=== PATIENT | male | born 1990 | race Caucasian/White ===

== ENCOUNTER 2017-08-17 15:41 | Emergency (ER) | payer MEDICAID ==
[2017-08-17] MEDS ORDERED: SODIUM CHLORIDE 0.9% FLUSH 10 ML FLUSH IVF PRN (16:45)
[2017-08-17] MEDS ORDERED: ASPIRIN 81 MG CHEW TAB PO ONE (16:45)
--- NOTE | 2017-08-17 16:45 | PD ---
HPI Chief Complaint: Chest Pain Time Seen by Provider: 16:34 Travel History International Travel<30 days: No Contact w/Intl Traveler<30days: No Traveled to known affect area: No History of Present Illness HPI Patient presents with an acute episode of chest pain. States it lasted approximately 10 minutes with radiation to both arms diaphoresis and shortness of breath. He is a smoker. Nondiabetic. Positive family history for cardiac disease. States he has been having these episodes for the past 13 years presumptive diagnosis of [id number]. States he is supposed to be wearing a Holter monitor however the battery has . Followed by cardiology in [place]. Driving to his home city of [facility] with poor diet and decreased ambulation. PFSH Past Medical History Diminished Hearing: No Musculoskeletal: Yes (DYSTONIA) Tetanus Vaccination: Unknown Influenza Vaccination: Yes ?: Not Past Surgical History Oral Surgery: Yes (WISDOM TEETH ) Social History Alcohol Use: No Tobacco Use: Yes (1PPD) Substance Use: Yes (MARIJUANA) Allergies-Medications (Allergen,Severity, Reaction): Coded Allergies: corn (Verified Allergy, Unknown, WEKENED IMMUNE SYSTEM, 08/17/17) dextrose (Verified Allergy, Unknown, WEAKENED IMMUNE SYSTEM, 08/17/17) milk (Verified Allergy, Unknown, WEAKENED IMMUNE SYSTEM, 08/17/17) Review of Systems General / Constitutional: No: Fever Eyes: No: Visual changes HENT: No: Headaches Cardiovascular: Positive: Chest Pain or Discomfort Respiratory: No: Shortness of Breath Gastrointestinal: No: Abdominal Pain Genitourinary: No: Dysuria Musculoskeletal: No: Pain Skin: No Rash Neurologic: No: Weakness Psychiatric: No: Depression Endocrine: No: Polydipsia Hematologic/Lymphatic: No: Easy Bruising Physical Exam Narrative GENERAL: Well-nourished, well-developed patient. SKIN: Focused skin assessment warm/dry. HEAD: Normocephalic. EYES: No scleral icterus. No injection or drainage. NECK: Supple, trachea midline. No JVD or lymphadenopathy. CARDIOVASCULAR: Regular rate and rhythm without murmurs, gallops, or rubs. RESPIRATORY: Breath sounds equal bilaterally. No accessory muscle use. GASTROINTESTINAL: Abdomen soft, non-tender, nondistended. MUSCULOSKELETAL: No cyanosis, or edema. BACK: Nontender without obvious deformity. No CVA tenderness. Data Data Last Documented VS Vital Signs Date Time Temp Pulse Resp B/P (MAP) Pulse Ox O2 Delivery O2 Flow Rate FiO2 08/17/17 16:57 74 08/17/17 16:57 99 Room Air 08/17/17 16:57 18 122/67 (85) Orders Orders Electrocardiogram (08/17/17 16:34) Basic Metabolic Panel (Bmp) (08/17/17 16:34) Ckmb (Isoenzyme) Profile (08/17/17 16:34) Complete Blood Count With Diff (08/17/17 16:34) Magnesium (Mg) (08/17/17 16:34) Prothrombin Time / Inr (Pt) (08/17/17 16:34) Act Partial Throm Time (Ptt) (08/17/17 16:34) Troponin I (08/17/17 16:34) Ecg Monitoring (08/17/17 16:34) Bilateral Bp Monitoring (08/17/17 16:34) Iv Access Insert/Monitor (08/17/17 16:34) Oximetry (08/17/17 16:34) Oxygen Administration (08/17/17 16:34) Aspirin Chew (Aspirin Chew) (08/17/17 16:45) Sodium Chloride 0.9% Flush (Ns Flush) (08/17/17 16:45) Chest, Pa & Lat (08/17/17 16:34) CKMB (08/17/17 16:45) CKMB% (08/17/17 16:45) Labs Laboratory Tests Test 08/17/17 16:45 White Blood Count 8.9 TH/MM3 Red Blood Count 5.04 MIL/MM3 Hemoglobin 15.4 GM/DL Hematocrit 44.3 % Mean Corpuscular Volume 87.8 FL Mean Corpuscular Hemoglobin 30.5 PG Mean Corpuscular Hemoglobin Concent 34.7 % Red Cell Distribution Width 12.3 % Platelet Count 239 TH/MM3 Mean Platelet Volume 8.4 FL Neutrophils (%) (Auto) 64.8 % Lymphocytes (%) (Auto) 27.7 % Monocytes (%) (Auto) 6.2 % Eosinophils (%) (Auto) 0.6 % Basophils (%) (Auto) 0.7 % Neutrophils # (Auto) 5.6 TH/MM3 Lymphocytes # (Auto) 2.5 TH/MM3 Monocytes # (Auto) 0.6 TH/MM3 Eosinophils # (Auto) 0.1 TH/MM3 Basophils # (Auto) 0.1 TH/MM3 CBC Comment DIFF FINAL Differential Comment Prothrombin Time 10.5 SEC Prothromb Time International Ratio 1.0 RATIO Activated Partial Thromboplast Time 27.4 SEC Blood Urea Nitrogen 13 MG/DL Creatinine 1.00 MG/DL Random Glucose 85 MG/DL Calcium Level 8.7 MG/DL Magnesium Level 2.2 MG/DL Sodium Level 139 MEQ/L Potassium Level 3.8 MEQ/L Chloride Level 106 MEQ/L Carbon Dioxide Level 25.4 MEQ/L Anion Gap 8 MEQ/L Estimat Glomerular Filtration Rate 92 ML/MIN Total Creatine Kinase 133 U/L Creatine Kinase MB 0.8 NG/ML Troponin I LESS THAN 0.02 NG/ML MDM Medical Decision Making Medical Screen Exam Complete: Yes Emergency Medical Condition: Yes Differential Diagnosis Acute coronary syndrome, reflux, [id number] Narrative Course Assessment plan discussed the patient at bedside. EKG reveals sinus rhythm rate of 82 questionable [id number]. Chest xray shows no acute cardiopulmonary process. 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 Rest, encouraged heart healthy diet Med/Other Pt SpecificInfo: No Meds Exist/No RX given Disposition: 01 DISCHARGE HOME Condition: Good Frederick Cunha MD Aug 17, 2017 16:45
[2017-08-17 16:57] VITALS: BP 122/67; PULSE 74; RESP 18; O2SAT 98
[2017-08-17 17:05] LABS: AUTOMATED NEUTROPHIL # 5.6 TH/MM3 (1.8-7.7); BASOPHIL # 0.1 TH/MM3 (0-0.2); BASOPHIL % 0.7 % (0.0-2.0); EOSINOPHIL # 0.1 TH/MM3 (0-0.4); EOSINOPHIL % 0.6 % (0.0-4.0); HEMATOCRIT 44.3 % (39.0-51.0); HEMOGLOBIN 15.4 GM/DL (13.0-17.0); LYMPH % 27.7 % (9.0-44.0); LYMPHOCYTE # 2.5 TH/MM3 (1.0-4.8); MEAN CELL VOLUME 87.8 FL (80.0-100.0); MEAN CORPUSCULAR HEMOGLOBIN 30.5 PG (27.0-34.0); MEAN CORPUSCULAR HGB CONC 34.7 % (32.0-36.0); MEAN PLATELET VOLUME 8.4 FL (7.0-11.0); MONO % 6.2 % (0.0-8.0); MONOCYTE # 0.6 TH/MM3 (0-0.9); NEUT % 64.8 % (16.0-70.0); PLATELET COUNT 239 TH/MM3 (150-450); RED BLOOD COUNT 5.04 MIL/MM3 (4.50-5.90); RED CELL DISTRIBUTION WIDTH 12.3 % (11.6-17.2); WHITE BLOOD COUNT 8.9 TH/MM3 (4.0-11.0)
[2017-08-17 17:12] LABS: CHLORIDE 106 MEQ/L (98-107); SODIUM (NA) 139 MEQ/L (136-145)
[2017-08-17 17:15] LABS: BICARBONATE 25.4 MEQ/L (21.0-32.0); CALCIUM 8.7 MG/DL (8.5-10.1); GLUCOSE,RANDOM 85 MG/DL (74-106); MAGNESIUM 2.2 MG/DL (1.5-2.5)
[2017-08-17 17:16] LABS: BLOOD UREA NITROGEN 13 MG/DL (7-18)
[2017-08-17 17:18] LABS: PROTHROMBIN TIME - PATIENT 10.5 SEC (9.8-11.6)
[2017-08-17 17:19] LABS: GLOMERULAR FILTRATION RATE 92 ML/MIN (>89)
--- NOTE | 2017-08-17 17:21 | RADRPT ---
EXAM DATE/TIME: 08/17/2017 16:44 [facility] COMPARISON: No previous studies available for comparison. INDICATIONS : Chest pain and right arm pain today MEDICAL HISTORY : None. SURGICAL HISTORY : None. ENCOUNTER: Initial ACUITY: 1 day PAIN SCORE: 2/10 LOCATION: Bilateral chest FINDINGS: PA and lateral views of the chest demonstrate the lungs to be symmetrically aerated without evidence of mass, infiltrate or effusion. The cardiomediastinal contours are unremarkable. Osseous structure s are intact. CONCLUSION: No acute disease. Malick Hernandez MD FACR on August 17, 2017 at 17:18 Board Certified Radiologist. This report was verified electronically.
[2017-08-17 17:23] LABS: TROPONIN I LESS THAN 0.02 NG/ML (0.02-0.05)
--- NOTE | 2017-08-18 19:39 | EKG ---
Date Performed: 08/17/2017 Time Performed: 15:47:35 PTAGE: 26 years EKG: ATRIAL FIBRILLATION POSSIBLE RIGHT VENTRICULAR CONDUCTION DELAY NONSPECIFIC T-WAVE ABNORMAL ITY ABNORMAL RHYTHM ECG NO PREVIOUS TRACING DOCTOR: Mary Guy Interpretating Date/Time 08/18/2017 19:38:17
== END 2017-08-17 17:59 | disposition home or self-care (01) ==
LOC: PHED 15:41
DX: R07.89 Other chest pain (principal); R06.02 Shortness of breath; F17.210 Nicotine dependence, cigarettes, uncomplicated; F12.90 Cannabis use, unspecified, uncomplicated; I48.91 Unspecified atrial fibrillation
CPT/HCPCS: 71046; 80048; 82550; 82552; 83735; 84484; 85025; 85610; 85730; 93005; 99285